=== PATIENT | female | born 1960 | race African-American/Black ===

== ENCOUNTER 2017-03-29 09:45 | Observation (INO) ==
[2017-03-29] MEDS ORDERED: MORPHINE 2 MG/1 ML SYRINGE IM STA (10:41)
--- NOTE | 2017-03-29 10:41 | Emergency Department Note ---
Arrival - Arrival Chief Complaint: Extremity Injury Stated Complaint: broken ankle possibly ED Nursing Triage Note: c/o right ankle pain. fell while walking to mailbox at approx 0920. edema noted to right ankle. pedal pulse palpated. Mode of Arrival: Wheelchair Limitations: No Limitations Source: Patient, RN Notes Reviewed Time Seen by Provider: 03/29/17 10:09 - History of Present Illness HPI Narrative: 56-year-old black female presents to ED with CC of pain in right ankle x just prior to arrival. Hx of injury to joint. Patient fell on the way to the mailbox this morning. Unable to bear weight or move joint. Patient denies significant previous medical history, although blood pressure is 164/104 in triage. Patient instructed to follow-up with PCP to check on blood pressure. PCP is [facility]. Onset (ago): hour(s) Consistency: constant Severity: severe Severity scale (1-10): 8 Quality: sharp Allergies/Adverse Reactions: Allergies Allergy/AdvReac Type Severity Reaction Status Date / Time Amoxicillin AdvReac Unknown/Unable Verified 03/29/17 10:07 to obtain Home Medications: Home Medications Medication Instructions Recorded Confirmed Type Multivitamin [Multivitamins] 1 each PO DAILY 03/29/17 03/29/17 History Review of System - Review of System 12 point system: reviewed and no additional remarkable complaints except as stated - Review of System Constitutional: Absent: fever Respiratory: Absent: respiratory distress Cardiovascular: Absent: chest pain Gastrointestinal: Absent: abdominal pain Musculoskeletal: Present: as per HPI, leg pain (Right ankle) Medical,Surgical,& Family Hx - Medical History Medical History: noncontributory - Surgical History Abdominal Surgeries: Surgical HX of: Hernia Repair Reproductive Surgeries: Surgical HX of;: Tubal Ligation - Social History Smoking Status: Never smoker Frequency of Alcohol Use: None Type of Drug Use: None Exam Physical Examination: - General General appearance: alert, in no apparent distress - Head Head exam: Present: atraumatic, normocephalic, normal inspection - Eye Eye exam: Present: normal appearance, PERRL, EOMI - Neck Neck exam: Present: normal inspection, full ROM - Chest Chest inspection: Present: normal appearance, symmetric chest rise - Respiratory Respiratory exam: Present: normal lung sounds bilaterally. Absent: accessory muscle use, rales, respiratory distress, rhonchi, wheezes - Cardiovascular Cardiovascular exam: Present: regular rate, normal rhythm, normal heart sounds - Extremities Exam Extremities exam: Present: Severe tenderness; right ankle, joint swelling, Painful, limited ROM, neurovascular status intact distal to injury - Back Exam Back exam: Present: normal inspection, full ROM - Neurological Exam Neurological exam: Present: alert, oriented X3 Absent: motor sensory deficit - Psychiatric Psychiatric exam: Present: normal affect, normal mood - Skin Skin exam: Present: warm, dry, intact Vital Signs: Vital Signs Temperature 97.9 F 03/29/17 23:29 Pulse Rate 71 03/29/17 23:29 Respiratory Rate 20 03/29/17 23:29 Blood Pressure 138/76 03/29/17 23:29 O2 Sat by Pulse Oximetry 99 03/29/17 23:29 Course - Consultations Time: 11:00 (Left message for [employer] to call back about patient.) Time: 11:30 (Nurse at Dr. Tomlinson's office returned call with instructions to send patient to their office and Dr. Tomlinson will see her there this afternoon.) Results - Labs CBC & BMP: 03/29/17 15:07 03/29/17 15:07 - Impressions Acute, mildly displaced fractures involving the medial malleolus and posterior aspect of the distal tibia with articular extension. There is mild lateral subluxation of the talus. Significant soft tissue swelling about the medial malleolus. - Diagnostic Findings Procedure: X-ray: report reviewed by me, image reviewed by me (Impression above. ) Disposition Clinical Impression: Displaced fracture of medial malleolus of right tibia Disposition: Disch To Home/Self Care Condition: Stable Time of Disposition: 11:30
[2017-03-29] MEDS ORDERED: MORPHINE 2 MG/1 ML SYRINGE ONE (10:44)
--- NOTE | 2017-03-29 10:50 | XRay Report ---
XR ankle 3V RT Indication: Pain/swelling Comparison: None Technique: Frontal, lateral, and oblique views of the right ankle. Findings: Acute, mildly displaced fractures involving the medial malleolus and posterior aspect of the distal tibia with articular extension. There is mild lateral subluxation of the talus. Significant soft tissue swelling about the medial malleolus. IMPRESSION: As above. PROCEDURE INTERPRETED AT [facility] [place] DEPARTMENT OF RADIOLOGY Final Report Signed by: Dr Dhruv Redding
[2017-03-29] MEDS ORDERED: ceFAZolin 1,000 MG VIAL ONE (15:04)
[2017-03-29] MEDS ORDERED: SODIUM CHLORIDE 0.9% 100 ML IV ONE (15:04)
[2017-03-29 15:11] LABS: Basophils # 0.1 10*3/uL (0.0-0.2); Basophils % 0.4 % (0.0-0.8); Eosinophils % 0.3 % (0.00-10.9); Hemoglobin 13.6 GM/DL (12.0-16.0); Immature Granulocytes % 0.4 %; Immature Granulocytes Absolute 0.04 #; Lymphocytes # 2.1 10*3/uL (1.4-4.0); Lymphocytes % 18.9 % (21.3-54.2); Mean Corpuscular HGB Conc 32.4 GM/DL (32-36); Mean Corpuscular Hemoglobin 27 PG (27-34); Mean Corpuscular Volume 83.5 FL (87-102); Mean Platelet Volume 10.8 FL (9.6-12.0); Monocytes # 0.7 10*3/uL (0.11-0.8); Monocytes % 6.5 % (1.7-12.7); Neutrophils # 8.2 10*3/uL (1.4-7.4); Neutrophils % 73.5 % (38.7-73.9); Platelet Count 215 T/CUMM (130-400); Red Blood Count 5.03 MC/CUMM (3.8-5.5); Red Cell Distribution Width 14.2 % (9.3-17.3); White Blood Count 11.1 T/CUMM (4-12)
--- NOTE | 2017-03-29 15:26 | EKG Report ---
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
[2017-03-29 15:49] LABS: Calcium 9.4 MG/DL (8.5-10.1); Osmolality,Calculated 277.4 MOS/KG (273-304)
[2017-03-29] MEDS: LACTATED RINGERS 1,000 ML IV SCH ×2 (16:15→17:21)
[2017-03-29] MEDS ORDERED: BACITRACIN OINT 0.9 GM PACK TOP ONE (16:18)
[2017-03-29] MEDS ORDERED: ROPIVACAINE 0.5% 30 ML VIAL ONE (16:35)
[2017-03-29] MEDS ORDERED: MORPHINE 10 MG/1 ML VIAL IV PRN ×2 (17:37)
[2017-03-29] MEDS ORDERED: ONDANSETRON 4 MG/2 ML VIAL IV PRN ×2 (17:37→17:45)
[2017-03-29] MEDS ORDERED: KETOROLAC 30 MG/1 ML VIAL IV PRN (17:37)
[2017-03-29] MEDS ORDERED: MAGNESIUM HYDROXIDE SUSP 30 ML UDCUP PO PRN (17:37)
[2017-03-29] MEDS ORDERED: HYDROmorphone 2 MG/1 ML VIAL ONE (17:44)
[2017-03-29] MEDS: HYDROmorphone 2 MG/1 ML VIAL IV PRN ×2 (17:45→17:50)
--- NOTE | 2017-03-29 17:45 | Operative Note ---
Date of procedure: 03/29/17 Procedure: DIAGNOSIS: Right ankle fracture with syndesmosis disruption PROCEDURE: Open reduction internal fixation right medial malleolus and syndesmosis SURGEON: Davi ANESTHESIA: General with postoperative popliteal block PROCEDURE and FINDINGS: After adequate anesthesia was induced, the patient's right lower extremity was prepped and draped in usual sterile fashion. Limb was exsanguinated with Esmarch. Tourniquet was inflated to 300 mmHg. Estimated tourniquet time was 39 minutes and released after dressing application. The medial malleolus was addressed first. A curvilinear incision was made. Using sharp and blunt dissection, the medial malleolus fracture was identified, reduced and secured with pins. 2 4.0 mm partially threaded cancellus screws were placed with excellent compression. A longitudinal incision was made laterally. The syndesmosis was reduced with a clamp. 2 3.5 mm cortical screws were placed through 4 cortices. Image intensification was used in multiple planes throughout the procedure. The wounds were irrigated, closed deep with 0 Vicryl and superficially with 3-0 Vicryl. Skin was closed with fay. A sterile dressing, bacitracin and a short leg splint was applied. She was extubated and transferred recovery room sure she is anticipated to receive a postoperative popliteal block. Surgeon / Physician: Israel Tomlinson Jr. Results - Labs CBC & BMP: 03/29/17 15:07 03/29/17 15:07 Discharge Plan - Discharge Medications No Action Multivitamin [Multivitamins] 1 each PO DAILY - Follow Up or Referral - Forms/Instructions
--- NOTE | 2017-03-29 18:06 | XRay Report ---
XR ankle 3V RT Indication: Intraoperative C-arm fluoroscopy. Comparison: None. Technique: A total of 4 images were obtained intraoperatively using C-arm fluoroscopy. Findings: Images were reviewed and deemed satisfactory by the operative physician. Total fluoroscopy time was 11 seconds. Impression: 1. C-arm usage as detailed. 03/29/2017 5:56 PM PROCEDURE INTERPRETED AT [facility] DEPARTMENT OF RADIOLOGY Final Report Signed by: Dr. Nicho Thomas
--- NOTE | 2017-03-29 18:38 | Anesthesia Post-Op ---
Anesthesia Post OP - Post Ansesthetic Evaluation Patient seen in post op: Yes Resp: within normal limits CV: within normal limits Mental: within normal limits Temp: within normal limits [id number]: within normal limits Nausea and Vomiting: within normal limits Pain: within normal limits
[2017-03-29] MEDS ORDERED: MIDAZOLAM 2 MG/2 ML VIAL ONE (18:41)
[2017-03-29] MEDS ORDERED: PROPOFOL 200 MG/20 ML VIAL IV ONE (18:41)
[2017-03-29] MEDS ORDERED: SEVOFLURANE 1 UNIT/15 MINUTE INH ONE (18:41)
--- NOTE | 2017-03-30 07:12 | Orthopedic Progress Note ---
Orthopedics - Subjective Interval history: Comfortable. Right lower extremity: Splint clean, dry and intact. She can flex extend her toes. Sensation is intact to light touch. Capillary refills less than 2 seconds. Plan: Discharge instructions were reviewed with the patient. She can be discharged home after physical therapy. Follow-up appointment in 10-14 days. Strict nonweightbearing right lower extremity. Elevate limb 6 inches over heart level. Prescription for [place] 5 was written. Keep splint clean, dry and intact. Arrange for walker for home use. Exam - Constitutional Vitals: Period Temp Pulse Resp BP Sys/Sandoval Pulse Ox Last 24 Hr 97.1 F-98.9 F 61-92 13-20 128-171/74-106 98-100 Results - Labs CBC & BMP: 03/29/17 15:07 03/29/17 15:07
[2017-03-30 11:19] VITALS: BP 136/74
== END 2017-03-30 11:10 | disposition home or self-care (01) ==
LOC: N.ED 09:45 → N.3E 14:29 → N.ED 14:29 → N.SDSINP 14:39 → N.3E 19:04
PROVIDERS: ADMIT Orthopaedic Surgery; ATTEND Orthopaedic Surgery